=== PATIENT | female | born 1945 | race Caucasian/White ===

== ENCOUNTER 2017-07-12 13:14 | Emergency (ER) | payer BC ==
[~2017-07-12] VITALS: Ht 152.4 cm; Wt 73.1 kg
[~2017-07-12 13:14] MED LIST: CHOL100011; GABA-826; HYDR-3307; OLME20TA19; ROSU5TAB; TRAZ150T18
[2017-07-12 13:18] VITALS: BP 133/81
[2017-07-12] MEDS ORDERED: LIDOCAINE 1%, 20ML ONE (13:54)
[2017-07-12] MEDS ORDERED: LIDOCAINE 1%, 20ML INFIL ONE (14:00)
[2017-07-12] MEDS ORDERED: BACITRACIN ZINC OINT 500U/GM, 0.9 GM ONE (15:53)
== END 2017-07-12 16:11 | disposition home or self-care (01) ==
LOC: ED 16:00
DX: S06.0X0A Concussion without loss of consciousness, initial encounter (principal); S01.01XA Laceration without foreign body of scalp, initial encounter; W22.8XXA Striking against or struck by other objects, initial encounter; Y93.89 Activity, other specified; Y92.009 Unspecified place in unspecified non-institutional (private) residence as the place of occurrence of the external cause; Y99.9 Unspecified external cause status
CPT/HCPCS: 12002; 70450; 99284